=== PATIENT | male | born 1955 | race Hispanic/Latino ===

== ENCOUNTER 2018-07-04 06:14 | Day surgery (SDC) | payer OTHER ==
[2018-06-29 07:35] VITALS: BMI 27.6
--- NOTE | 2018-07-02 01:25 | HP ---
Copied To: Nyla Stanton MD Attending MD: Nyla Stanton MD REASON FOR ADMISSION: Peripheral angiogram and possible angioplasty. BRIEF CLINICAL HISTORY: This is a 63-year-old male with a past medical history significant for coronary artery disease status post multiple PTCA with a history of non-STEMI, multiple PTCA with a history of peripheral artery disease status post PTCA of right SFA 03/31/2015, complained of claudication. The patient had a YASMEEN that is severe and disease of left SFA and moderate disease in right SFA. The patient is scheduled for elective cardiac cath, possible angioplasty. PAST MEDICAL HISTORY: Significant for coronary artery disease status post cardiac cath on 08/31/2013 and nonobstructive coronary artery disease patent stent in the LAD circumflex, mild to moderate in-stent stenosis in mid RCA. Medical treatment recommended. Ejection fraction 65% dated 08/31/2013. PREVIOUS CARDIAC WORKUP: As follows: The patient had a cardiac catheterization on 08/31/2013, medical treatment recommended. The patient had echo 05/23/2018 ejection fraction 65% to 70%, trace tricuspid regurgitation, RV systolic pressure of 32. Trace to mild mitral regurgitation. The patient had a stress test on 05/26/2018, this was normal cardiac perfusion imaging study. Ejection fraction of 62% by Lexiscan. The patient had YASMEEN PVR 05/18/2018, with severe arterial occlusive disease in the mid superficial femoral artery of the left lower extremity resulting in stenosis greater than 75%, moderate arterial occlusive disease in deep SFA of the right lower extremity, mild arterial occlusive disease seen in superficial femoral artery of the right lower extremity, read by Dr. Lele Marquez. PAST MEDICAL HISTORY: Also significant for diabetes, hypertension, hyperlipidemia. SOCIAL HISTORY: Denies any smoking. Denies any history of alcohol abuse. CURRENT MEDICATIONS: The patient is taking Risperdal 1 mg daily, Protonix, metformin, meloxicam, lisinopril, insulin, gemfibrozil, clopidogrel, Celexa, atorvastatin. REVIEW OF SYSTEMS: As per HPI. PHYSICAL EXAMINATION: VITAL SIGNS: Height of the patient is 5 feet 7 inches, weight of the patient 176 pounds, body mass index 27.6 kg/sq m. Rest of the vitals, temperature afebrile, heart rate 68, blood pressure 110/70. HEENT: PERRLA. Extraocular muscles intact. NECK: Supple. No carotid bruits or thyromegaly. CHEST: Clear to auscultation. HEART: S1 and S2, regular. ABDOMEN: Soft. EXTREMITIES: Clubbing and cyanosis negative. LABORATORY DATA: Blood workup pending. IMPRESSION: A 63-year-old male with a past medical history significant for coronary artery disease status post non-ST elevation myocardial infarction, status post multiple stents. Last catheterization in 2012, patent stent. Last stress test 2017, no ischemia. Trace mitral regurgitation, trace to mild tricuspid regurgitation. Ankle-brachial index, severe abnormal ankle-brachial index, worst on right. Moderate disease of the right lower extremity, severe left superficial femoral artery disease. History of right superficial femoral artery, percutaneous transluminal angioplasty in the past. RECOMMENDATION: Peripheral angiogram further recommended after the cardiac catheterization. We will follow with you. We will go from right femoral and possible PTCA of left SFA. Thank you Dr. Miller, for providing us the opportunity in taking care of the patient, Jared Hunt. Nyla Stanton MD
[2018-07-04] MEDS ORDERED: Phenylephrine 10 mg/ml Inj ONE (06:43)
[2018-07-04] MEDS ORDERED: Lidocaine PF 2% (5 ml) Inj (For Cardiac Arrhy) ONE (06:43)
[2018-07-04] MEDS ORDERED: Nitroglycerin 50mg in D5W 50 MG/250 ML BOTTLE IV ONE (06:44)
[2018-07-04] MEDS ORDERED: Iodixanol 320 MG/ML 200 ML BOTTLE IV ONE (06:44)
[2018-07-04] MEDS ORDERED: Iodixanol 320 MG/ML 100 ML BOTTLE IV ONE (06:44)
[2018-07-04] MEDS ORDERED: Iodixanol 320 mg/ml 150 ml Bottle IV ONE (06:44)
[2018-07-04 07:06] LABS: BASO # 0.03 K/mm3 (0.0-2.0); BASO % 0.4 % (0.0-3.0); EOS # 0.4 (0.0-0.7); EOS % 4.6 % (1.5-5.0); GRAN # 4.41 (1.4-6.5); GRAN % 55.9 % (50.0-68.0); HEMOGLOBIN 13.1 g/dL (14.0-18.0); LYMPH # 2.4 (1.2-3.4); LYMPH % 30.5 % (22.0-35.0); MEAN CORPUSCULAR HEMOGLOBIN 28.5 pg (25.0-35.0); MEAN CORPUSCULAR HGB CONC 34.4 g/dl (31.0-37.0); MEAN PLATELET VOLUME 9.8 fl (7.0-11.0); MONO # 0.7 (0.1-0.6); MONO % 8.6 % (1.0-6.0); RBC 4.59 10^6/uL (3.5-6.1); RED CELL DISTRIBUTION WIDTH 12.9 % (11.5-14.5); WHITE BLOOD COUNT 7.9 10^3/ul (4.5-11.0)
[2018-07-04 07:07] LABS: BLOOD UREA NITROGEN 17 mg/dL (7-21); CALCIUM 9.5 mg/dL (8.4-10.5); GFR AFRICAN-AMERICAN > 60; GFR NON-AFRICAN AMERICAN > 60; HDL CHOLESTEROL 47 mg/dL (29-60)
[2018-07-04 07:08] LABS: INR 0.88; PROTHROMBIN TIME 10.1 SECONDS (9.4-12.5)
[2018-07-04 07:11] LABS: PARTIAL THROMBOPLASTIN TIME 27.7 Seconds (25.1-36.5)
[2018-07-04 07:16] LABS: LDL CHOLESTEROL 59 mg/dL (0-129)
[2018-07-04] MEDS ORDERED: Verapamil 2 ML ONE (09:01)
[2018-07-04] MEDS ORDERED: Midazolam 2 MG/2 ML VIAL ONE ×2 (09:11→10:11)
[2018-07-04] MEDS ORDERED: Sodium Chloride 0.9% 1,000 ML IV SCH (11:30)
[2018-07-04 11:38] VITALS: TEMP 98
[2018-07-04] MEDS ORDERED: Insulin Regular 100 units/ml ONE (12:26)
[2018-07-04 12:27] VITALS: RESP 20
[2018-07-04] MEDS ORDERED: Insulin Reg-MEDIUM-Coverage SC ONE (12:30)
--- NOTE | 2018-07-04 12:51 | CPOSTOP ---
Copied To: Nyla Stanton MD Attending MD: Nyla Stanton MD DATE: 07/04/2018 CARDIOVASCULAR LAB POST PROCEDURE NOTE DICTATING PHYSICIAN: Nyla Stanton MD BUSINESS DIRECTOR: Nolan De La Rosa, natural resources technician. TYPE OF ANESTHESIA: Moderate conscious sedation, total 3 mg of Versed and 100 of fentanyl. PRE-PROCEDURE DIAGNOSES: Severe peripheral arterial disease, coronary artery disease, claudication. PROCEDURE PERFORMED: Abdominal aortogram, peripheral angiogram with runoff and CSI atherectomy of left superficial femoral artery and drug-coated balloon of left superficial femoral artery. FINDINGS: Critical disease of left superficial femoral artery. FINAL DIAGNOSIS: Bilateral superficial femoral artery disease. POST PROCEDURE CONDITION: The patient's condition is stable. VASCULAR ACCESS SITE: Right femoral artery. CLOSURE DEVICE: Mynx applied. TOTAL RADIATION DOSE: 13612 milligray unit. TOTAL FLUORO TIME: 33 minutes. Nyla Stanton MD
[2018-07-04 13:50] VITALS: O2SAT 98
[2018-07-04 15:09] VITALS: BP 132/66; PULSE 59
[2018-07-04 16:22] LABS: BASO # 0.03 K/mm3 (0.0-2.0); BASO % 0.4 % (0.0-3.0); EOS # 0.3 (0.0-0.7); EOS % 3.2 % (1.5-5.0); GRAN # 4.89 (1.4-6.5); GRAN % 60.9 % (50.0-68.0); HEMOGLOBIN 12.9 g/dL (14.0-18.0); LYMPH # 2.4 (1.2-3.4); LYMPH % 29.6 % (22.0-35.0); MEAN CELL VOLUME 82.9 fl (80.0-105.0); MEAN CORPUSCULAR HEMOGLOBIN 28.7 pg (25.0-35.0); MEAN CORPUSCULAR HGB CONC 34.6 g/dl (31.0-37.0); MEAN PLATELET VOLUME 9.2 fl (7.0-11.0); MONO # 0.5 (0.1-0.6); MONO % 5.9 % (1.0-6.0); RBC 4.5 10^6/uL (3.5-6.1); RED CELL DISTRIBUTION WIDTH 12.9 % (11.5-14.5)
[2018-07-04] MEDS ORDERED: Insulin Reg-MEDIUM-Coverage SC SCH (16:30)
[2018-07-04 16:31] LABS: BLOOD UREA NITROGEN 14 mg/dL (7-21); CALCIUM 8.8 mg/dL (8.4-10.5); GFR AFRICAN-AMERICAN > 60; GFR NON-AFRICAN AMERICAN > 60
[2018-07-04] MEDS ORDERED: Insulin Detemir 100 units/ml Vial (Levemir) SC SCH (18:00)
--- NOTE | 2018-07-04 22:41 | CARD ---
APPROVED REPORT Date of service: 07/04/2018 EKG Measurement Heart [id number] <Conclusion> Normal sinus rhythm Normal ECG
--- NOTE | 2018-07-05 14:40 | VAS ---
Copied To: Nyla Stanton MD Attending MD: Nyla Stanton MD. DATE: 07/04/2018 TYPE OF PROCEDURE: Peripheral angiogram and angioplasty of left SFA after CSI. PROCEDURES PERFORMED: 1. Distal abdominal aortogram. 2. Bilateral lower extremity peripheral angiogram with 3-vessel runoff using digital subtraction angiography. 3. Atherectomy with CSI of left superficial femoral artery/popliteal trunk (SFA/popliteal trunk). 4. Angioplasty with a drug-coated balloon of left distal superficial femoral artery/popliteal trunk. REFERRING PHYSICIAN: Dr. Rachel. OPERATING DOCTOR: Mikel Stanton MD. ENGINE ROOM OPERATOR: Nolan De La Rosa, aviation electrical technician, is scheduling elective. INDICATIONS FOR THE PROCEDURE: Critical ischemia of the limb, severe claudication more on left side than right, grossly abnormal YASMEEN suggestive of critical disease of left SFA and right SFA and anterior tibial artery, both sides. BRIEF CLINICAL HISTORY: This is a 63-year-old male with past medical history significant for coronary artery disease, status post multiple PTCA with history of non-STEMI, multiple PTCA with history of peripheral artery disease as well as history of PTCA of right superficial femoral artery, SFA, 03/31/2015, complaining of claudication. The patient underwent YASMEEN. YASMEEN done in Dr. Lele Marquez's office that shows YASMEEN and PVR dated 05/18/2018, with severe arterial occlusive disease in the mid superficial femoral artery of the left lower extremity resulting in a stenosis greater than 75%. Moderate arterial occlusive disease in the deep SFA of the right extremity, mild arterial occlusive disease in SFA in the right lower extremity read by Dr. Lele Marquez dated 05/18/2018, and peripheral angiogram was recommended. On examination, the patient had 2 plus bilateral femoral and popliteal arteries palpable and then Doppler pulses on both sides Posterior Tibial. PERIPHERAL ANGIOGRAM AND TECHNIQUE: Relative risk and indications to the procedure were explained to the patient. Patient agreed and consent obtained. Patient was put in supine position on the arteriogram table, and both right and left groins were prepped and then, the right groin was used to access. Conscious sedation was given continuously. The patient was being monitored. The pulse oxymetry and hemodynamics continuously being monitored. Access obtained from the right femoral artery with micropuncture technique using Seldinger technique and then, 5-Icelandic arterial sheath was introduced and then, 5-Icelandic Omni Flush catheter was placed in the distal abdominal aortogram just above the renal artery and non-selective abdominal aortogram was obtained and then, this Omni Flush catheter was pulled. The bifurcation and then, bilateral lower extremity runoff using DSA was obtained. Using same protocol, multiple views and orthogonal views were obtained up to the foot. Then, atherectomy CSI was used for left distal SFA and popliteal trunk and then, drug-coated balloon was used in the distal SFA. ATHERECTOMY: The 1.5 solid annette atherectomy from the CSI was used in left SFA and three runs were given; 60, 80 and 120 revolutions per minute and is continuously being flushed side port as well as atherectomy cocktail was continuously being infused and after this, CSI atherectomy was removed and then, drug-coated balloon 6 x 80, 6 mm in diameter, 80 mm in length, was placed in the distal SFA and popliteal trunk for three minutes and after this, balloon was taken and final pictures were taken. Stenosis decreased pre-procedure from 80% to 90% to 0% with ED III brisk flow. ACT was checked, found to be 220 seconds. Puncture site was closed after exchanging the sheath with a short sheath with a Mynx closing device. FINDINGS: As follows: Diffuse calcification noted in the abdominal aorta with acute (hostile takeoff and bifurcation of both common iliac noted. Severe calcification and multiple plaque noted in the bifurcation of the aorta. 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 Before bifurcation, common iliac 30% to 40% stenosis noted. External iliac is very tortuous with calcified plaque noted and continues as common femoral and then, common femoral split into superficial femoral artery, SFA and profunda artery. Superficial femoral continues into the adductor canal to the popliteal trunk, just distal end of SFA had 80% to 90% stenosis noted with calcified plaque and then, it continues at the popliteal trunk and the popliteal trunk trifurcates into anterior tibial which after takeoff had totally occluded and rest of the 2 trifurcations, common peroneal and posterior tibial continued up to the foot and ankle with 2-vessel distal runoff noted. Right common iliac shows luminal irregularities and plaque noted, but no flow obstructive stenosis noted that bifurcates into external iliac and internal iliac. External iliac continues to femoral artery and with femoral artery again bifurcates into profunda and superficial femoral artery. Superficial femoral artery runs into the adductor canal as the popliteal artery before runs into the popliteal trunk, multiple stenosis 80% with ulcerated plaque noted in the distal right SFA and the popliteal trunk. Then, it trifurcates into just below the knee into anterior tibial and posterior tibial and common peroneal. Anterior tibial is diffusely diseased and only 2 distal vessel runoff noted up to the ankle. Anterior tibial occluded. Successful atherectomy with CSI using 1.5 burden with a distal SFA and popliteal trunk, then drug-coated balloon, 80 mm long and 6 mm diameter used for 3 minutes. Final pictures were taken, DSA and stenosis decreased from pre-procedure 80% to 90%, to 0% with ED III brisk flow noted and at the end of the procedure, palpable left dorsalis pedis noted, whereas pre- procedure only Dopler posterior tibial was present. IMPRESSION: Successful atherectomy with CSI of left superficial femoral artery and popliteal trunk was done with 2-vessel runoff noted at the ankle. Pre-procedure 80% to 90% stenosis noted, post-procedure 0% residual stenosis and ED III brisk flow was noted. Using three speed of annette, 60, 80, 120 revolutions per minute used with 1.5 solid annette CSI and after that, drug-coated balloon as mentioned, 80 cm in length and 6 mm in diameter used. At the end of the procedure, puncture site was closed, right side with Mynx and left dorsalis pedis pulse was noted. Puncture site was closed with the Mynx. PLAN: Reassess the patient in the office in 2 weeks and if the patient remained stable, reschedule for right SFA PTCA in four weeks on 08/08/2018, at 7:30. Thank you for Dr. Rachel for opportunity in taking care of the patient, Jared Hunt. Nyla Stanton MD cc: Dr. Rachel OTIS
== END 2018-07-04 18:30 | disposition home or self-care (01) ==
LOC: SDSVAS 06:14
PROVIDERS: ATTEND Internal Medicine Cardiovascular Disease
DX: I73.9 Peripheral vascular disease, unspecified (principal); I25.10 Atherosclerotic heart disease of native coronary artery without angina pectoris; I25.2 Old myocardial infarction; E11.9 Type 2 diabetes mellitus without complications
CPT/HCPCS: 36415; 37225; 75625; 75716; 80048; 80061; 82948; 85025; 85175; 85610; 85730; 86850; 86900; 93005; 99152; 99153; C1713; C1725 ×3; C1760; C1769 ×4; C1776; C1887 ×2; C1894; J1644 ×2; J2250; J3010; J7030; Q9966; Q9967 ×2